=== PATIENT | male | born 1955 | race Caucasian/White ===

== ENCOUNTER 2021-09-18 11:23 | Inpatient (IN) ==
[2021-09-18] MEDS ORDERED: ASPIRIN 325 MG TABLET ONE (11:44)
[2021-09-18] MEDS ORDERED: NITROGLYCERIN 2% OINT 1 INCH/GM PACK TOP ONE (11:44)
[2021-09-18] MEDS ORDERED: NITROGLYCERIN SL 0.4 MG TABLET SL PRN (11:45)
[2021-09-18] MEDS ORDERED: MORPHINE 2 MG/1 ML SYRINGE IV STA (11:45)
[2021-09-18] MEDS ORDERED: ASPIRIN 325 MG TABLET PO STA (11:45)
[2021-09-18] MEDS ORDERED: TICAGRELOR 90 MG TABLET PO STA (11:58)
[2021-09-18] MEDS ORDERED: NITROGLYCERIN 2% OINT 1 INCH/GM PACK TOP STA (11:58)
[2021-09-18] MEDS ORDERED: HEPARIN 5,000 UNIT/1 ML VIAL IV ONE (11:58)
[2021-09-18] MEDS ORDERED: ALUMINUM/MAGNES/SIMETH MAX STR 30 ML UDCUP PO PRN (12:17)
[2021-09-18] MEDS ORDERED: hydrALAZINE 20 MG/1 ML VIAL IV PRN (12:17)
[2021-09-18] MEDS ORDERED: guaiFENesin/DM ER 600-30 MG TABLET PO PRN (12:17)
[2021-09-18] MEDS ORDERED: ZALEPLON 5 MG CAPSULE PO PRN (12:17)
[2021-09-18] MEDS ORDERED: PROMETHAZINE 25 MG TABLET PO PRN (12:17)
[2021-09-18] MEDS ORDERED: DOCUSATE SODIUM 100 MG CAPSULE PO PRN (12:17)
[2021-09-18] MEDS ORDERED: ACETAMINOPHEN 325 MG TABLET PO PRN (12:17)
[2021-09-18] MEDS ORDERED: ONDANSETRON 4 MG/2 ML VIAL IV PRN (12:17)
[2021-09-18] MEDS ORDERED: MAGNESIUM SULF RIDER 2 GM/50 ML PREMIX IV PRN (12:17)
[2021-09-18] MEDS ORDERED: MAGNESIUM SULF RIDER 4 GM/100 ML PREMIX IV PRN (12:17)
[2021-09-18] MEDS ORDERED: diphenhydrAMINE CAP 25 MG CAPSULE PO PRN (12:17)
[2021-09-18] MEDS ORDERED: MORPHINE 2 MG/1 ML SYRINGE IV PRN (12:17)
[2021-09-18] MEDS ORDERED: POTASSIUM CHLORIDE 20 MEQ TABLET PO PRN (12:17)
[2021-09-18 12:18] LABS: Basophils % 0.4 % (0.0-0.8); Eosinophils # 0.2 10*3/uL (0.0-0.87); Eosinophils % 2.3 % (0.00-10.9); Hematocrit 45.1 VOL% (42.0-52.0); Hemoglobin 14.2 GM/DL (14.0-18.0); Immature Granulocytes % 0.3 %; Immature Granulocytes Absolute 0.03 #; Lymphocytes # 2.5 10*3/uL (1.4-4.0); Lymphocytes % 26.8 % (21.2-54.2); Mean Corpuscular HGB Conc 31.5 GM/DL (32-36); Mean Corpuscular Volume 100.2 FL (87-102); Mean Platelet Volume 8.9 FL (9.6-12.0); Monocytes # 0.6 10*3/uL (0.11-0.8); Monocytes % 6.5 % (1.7-12.7); Neutrophils % 63.7 % (38.7-73.9); Platelet Count 213 T/CUMM (130-400); Red Cell Distribution Width 12.9 % (9.3-17.3); White Blood Count 9.2 T/CUMM (4-12)
[2021-09-18] MEDS ORDERED: NITROGLYCERIN DRIP 50 MG/250 ML BOTTLE IV ONE (12:23)
[2021-09-18] MEDS ORDERED: VERAPAMIL 5 MG/2 ML VIAL ONE (12:23)
[2021-09-18] MEDS ORDERED: HEPARIN/NACL 0.9% 2 UNITS/ML 2,000 UNIT/1,000 ML BAG IV ONE (12:23)
[2021-09-18] MEDS ORDERED: HYDROmorphone 1 MG/1 ML SYRINGE ONE (12:24)
[2021-09-18] MEDS ORDERED: MIDAZOLAM 2 MG/2 ML VIAL ONE (12:24)
[2021-09-18 12:30] LABS: INR 0.9; PT Patient Result 10.5 SECS (10.5-12.0)
[2021-09-18 12:31] VITALS: BP 154/83
[2021-09-18] MEDS ORDERED: TIROFIBAN 5,000 MCG/100 ML PREMIX IV ONE (12:35)
[2021-09-18] MEDS ORDERED: TICAGRELOR 90 MG TABLET ONE (12:45)
[2021-09-18 12:50] LABS: Alanine Aminotransferase 25 U/L (16-61); Albumin 3.7 G/DL (3.4-5.0); Alkaline Phosphatase 51 U/L (45-117); Aspartate Amino Transferase 19 U/L (0-37); Bilirubin,Total < 0.39 MG/DL (0.20-1.00); Blood Urea Nitrogen 20 MG/DL (7-18); Calcium 9.1 MG/DL (8.5-10.1); Carbon Dioxide 22 MMOL/L (21-32); Chloride 107 MMOL/L (98-107); Glucose 129 MG/DL (74-106); Osmolality,Calculated 277.8 MOS/KG (273-304); Potassium 3.8 MMOL/L (3.5-5.1); Sodium 137 MMOL/L (136-145); Total Protein 6.9 G/DL (6.4-8.2)
[2021-09-18] MEDS ORDERED: TIROFIBAN 5,000 MCG/100 ML PREMIX IV SCH (13:00)
[2021-09-18] MEDS: carvediloL 6.25 MG TABLET PO SCH (20:31)
[2021-09-18] MEDS: TICAGRELOR 90 MG TABLET PO SCH (20:31)
[2021-09-18] MEDS ORDERED: ROSUVASTATIN 20 MG TABLET PO SCH (21:00)
[2021-09-19 04:40] LABS: Basophils % 0.3 % (0.0-0.8); Eosinophils # 0.1 10*3/uL (0.0-0.87); Eosinophils % 1.3 % (0.00-10.9); Hematocrit 44.5 VOL% (42.0-52.0); Hemoglobin 14.8 GM/DL (14.0-18.0); Immature Granulocytes % 0.5 %; Immature Granulocytes Absolute 0.05 #; Lymphocytes # 1.4 10*3/uL (1.4-4.0); Lymphocytes % 12.3 % (21.2-54.2); Mean Corpuscular HGB Conc 33.3 GM/DL (32-36); Mean Corpuscular Volume 94.3 FL (87-102); Mean Platelet Volume 9.1 FL (9.6-12.0); Monocytes # 0.6 10*3/uL (0.11-0.8); Monocytes % 5.7 % (1.7-12.7); Neutrophils % 79.9 % (38.7-73.9); Platelet Count 226 T/CUMM (130-400); Red Blood Count 4.72 MC/CUMM (3.8-5.5); Red Cell Distribution Width 12.9 % (9.3-17.3); White Blood Count 11.1 T/CUMM (4-12)
[2021-09-19 06:25] LABS: Albumin 3.4 G/DL (3.4-5.0); Bilirubin,Total 0.4 MG/DL (0.20-1.00); Osmolality,Calculated 279.5 MOS/KG (273-304); Potassium 3.9 MMOL/L (3.5-5.1); Risk Ratio 3.37; Thyroid Stimulating Hormone 1.64 uIU/ml (0.358-3.74); Total Protein 6.5 G/DL (6.4-8.2); VLDL Cholesterol 22.6 MG/DL
[2021-09-19 06:26] LABS: CKMB % 5.04 %
[2021-09-19] MEDS: carvediloL 6.25 MG TABLET PO SCH (08:46)
[2021-09-19] MEDS: TICAGRELOR 90 MG TABLET PO SCH (08:46)
[2021-09-19] MEDS ORDERED: PANTOPRAZOLE 40 MG TABLET PO SCH (09:00)
[2021-09-19] MEDS ORDERED: ASPIRIN EC 81 MG TABLET PO SCH (09:00)
[2021-09-19] MEDS ORDERED: LOSARTAN 25 MG TABLET PO SCH (09:00)
== END 2021-09-19 10:54 | disposition home or self-care (01) | DRG 247 ==
LOC: N.ED 11:23 → N.ICU 12:17
PROVIDERS: ADMIT Internal Medicine Cardiovascular Disease; ATTEND Internal Medicine Cardiovascular Disease

== ENCOUNTER 2022-02-16 00:09 | Inpatient (IN) ==
[2022-02-16 01:23] LABS: Albumin 3.5 G/DL (3.4-5.0); Bilirubin,Total 0.6 MG/DL (0.20-1.00); Calcium 9.7 MG/DL (8.5-10.1); Osmolality,Calculated 275.2 MOS/KG (273-304); Potassium 3.6 MMOL/L (3.5-5.1); Total Protein 6.9 G/DL (6.4-8.2)
[2022-02-16 01:53] LABS: Basophils % 0.1 % (0.0-0.8); Hematocrit 42.4 VOL% (42.0-52.0); Hemoglobin 14.7 GM/DL (14.0-18.0); Immature Granulocytes % 1.6 %; Immature Granulocytes Absolute 0.22 #; Lymphocytes # 0.5 10*3/uL (1.4-4.0); Lymphocytes % 3.7 % (21.2-54.2); Mean Corpuscular HGB Conc 34.7 GM/DL (32-36); Mean Platelet Volume 9.4 FL (9.6-12.0); Monocytes # 0.8 10*3/uL (0.11-0.8); Monocytes % 5.8 % (1.7-12.7); Neutrophils % 88.8 % (38.7-73.9); Platelet Count 166 T/CUMM (130-400); Red Blood Count 4.61 MC/CUMM (3.8-5.5); White Blood Count 13.9 T/CUMM (4-12)
[2022-02-16 02:26] LABS: Band Neutrophils 1 % (0-10); Lymphocytes 3 % (20-55); Ovalocytes Slight; Total Cells Counted 100
[2022-02-16 02:27] LABS: Platelet Estimate Adequate
[2022-02-16] MEDS ORDERED: SODIUM CHLORIDE 0.9% 500 ML IV STA (03:22)
[2022-02-16] MEDS ORDERED: HYDROmorphone 1 MG/1 ML SYRINGE IV STA (03:22)
[2022-02-16] MEDS ORDERED: ONDANSETRON 4 MG/2 ML VIAL IV STA (03:22)
[2022-02-16 03:30] LABS: Mucus,Urine Moderate /LPF (Occasional); RBC,Urine <1 /HPF (0-4)
[2022-02-16 03:32] LABS: Bilirubin,Urine Small mg/dL (Negative); Blood, Urine Negative (Negative); Glucose,Urine (UA) Negative (Negative); Ketones,Urine Trace mg/dL (Negative); Nitrite,Urine Negative (Negative); Protein,Urine 100 mg/dL (Negative); Urine Appearance Clear (Clear); Urine Color Yellow (Yellow); Urine Specific Gravity >= 1.030 (1.001-1.035); Urine Urobilinogen 0.2 eU/dL (<2.0); Urine pH 5.5 (4.5-8.0)
[2022-02-16] MEDS ORDERED: PIPERACILLIN/TAZOBACTAM 3,375 MG in SODIUM CHLORIDE 0.9% 100 ML IV STA (04:31)
[2022-02-16] MEDS ORDERED: PANTOPRAZOLE 40 MG TABLET PO PRN (04:42)
[2022-02-16] MEDS ORDERED: HYDROmorphone 1 MG/1 ML SYRINGE IV PRN (04:55)
[2022-02-16] MEDS ORDERED: ONDANSETRON 4 MG/2 ML VIAL IV PRN ×2 (04:55→15:52)
[2022-02-16] MEDS ORDERED: ACETAMINOPHEN 325 MG TABLET PO PRN (04:55)
[2022-02-16] MEDS: SODIUM CHLORIDE 0.9% 1,000 ML IV SCH ×3 (05:15→20:55)
[2022-02-16] MEDS: HYDROmorphone 1 MG/1 ML SYRINGE IV PRN ×6 (07:19→18:10)
[2022-02-16] MEDS ORDERED: TICAGRELOR 90 MG TABLET PO SCH (09:00)
[2022-02-16] MEDS ORDERED: SPIRONOLACTONE 25 MG TABLET PO SCH (09:00)
[2022-02-16] MEDS ORDERED: LOSARTAN 25 MG TABLET PO SCH (09:00)
[2022-02-16] MEDS: PANTOPRAZOLE 40 MG VIAL IV SCH (09:22)
[2022-02-16] MEDS: amLODIPine 10 MG TABLET PO SCH (09:24)
[2022-02-16] MEDS: carvediloL 6.25 MG TABLET PO SCH ×2 (09:24→20:54)
[2022-02-16] MEDS: ASPIRIN EC 81 MG TABLET PO SCH (09:27)
[2022-02-16] MEDS ORDERED: BUPIVACAINE MPF 0.25% 10 ML VIAL ONE (15:01)
[2022-02-16] MEDS ORDERED: TISSUE ADHESIVE 1 EACH APPLICATOR TOP ONE (15:02)
[2022-02-16] MEDS ORDERED: LIDOCAINE 1% 5 ML VIAL ONE (15:02)
[2022-02-16] MEDS ORDERED: LIDOCAINE 2% 5 ML VIAL ONE (15:19)
[2022-02-16] MEDS ORDERED: SEVOFLURANE 1 UNIT/15 MINUTE INH ONE ×2 (15:19→17:20)
[2022-02-16] MEDS ORDERED: propofoL 200 MG/20 ML VIAL IV ONE (15:19)
[2022-02-16] MEDS ORDERED: MIDAZOLAM 2 MG/2 ML VIAL ONE (15:19)
[2022-02-16] MEDS ORDERED: ROCURONIUM 50 MG/5 ML VIAL IV ONE (15:19)
[2022-02-16] MEDS ORDERED: fentaNYL 100 MCG/2 ML VIAL ONE (15:19)
[2022-02-16] MEDS ORDERED: PHENYLEPHRINE 1 MG/10 ML SYRINGE IV ONE (15:20)
[2022-02-16] MEDS ORDERED: PROMETHAZINE INJ 25 MG in SODIUM CHLORIDE 0.9% 50 ML IV PRN (15:52)
[2022-02-16] MEDS ORDERED: MEPERIDINE 25 MG/1 ML VIAL IV PRN (15:52)
[2022-02-16] MEDS ORDERED: diphenhydrAMINE 50 MG/1 ML VIAL IV PRN (15:52)
[2022-02-16] MEDS ORDERED: ePHEDrine 50 MG/ML VIAL ONE (16:09)
[2022-02-16] MEDS ORDERED: SUGAMMADEX 200 MG/2 ML VIAL IV ONE (17:20)
[2022-02-16] MEDS ORDERED: ACETAMINOPHEN INJ 1,000 MG/100 ML VIAL IV ONE (17:20)
[2022-02-16] MEDS ORDERED: LACTATED RINGERS 1,000 ML IV ONE (17:21)
[2022-02-16] MEDS: PIPERACILLIN/TAZOBACTAM 3,375 MG in SODIUM CHLORIDE 0.9% 100 ML IV SCH ×2 (18:12→20:54)
[2022-02-16 18:46] LABS: Basophils % 0.1 % (0.0-0.8); Hemoglobin 12.7 GM/DL (14.0-18.0); Immature Granulocytes % 0.2 %; Immature Granulocytes Absolute 0.02 #; Lymphocytes # 0.6 10*3/uL (1.4-4.0); Lymphocytes % 6.6 % (21.2-54.2); Mean Corpuscular HGB Conc 33.4 GM/DL (32-36); Mean Corpuscular Volume 95.2 FL (87-102); Mean Platelet Volume 9.5 FL (9.6-12.0); Monocytes # 0.6 10*3/uL (0.11-0.8); Monocytes % 6.7 % (1.7-12.7); Neutrophils % 86.4 % (38.7-73.9); Platelet Count 128 T/CUMM (130-400); Red Blood Count 3.99 MC/CUMM (3.8-5.5); Red Cell Distribution Width 13.4 % (9.3-17.3); White Blood Count 9.6 T/CUMM (4-12)
[2022-02-16 18:54] LABS: Calcium 8.2 MG/DL (8.5-10.1); Osmolality,Calculated 282.7 MOS/KG (273-304)
[2022-02-16 19:16] LABS: Band Neutrophils 39 % (0-10); Lymphocytes 11 % (20-55); Platelet Estimate Decreased; Total Cells Counted 100
[2022-02-16] MEDS: ROSUVASTATIN 20 MG TABLET PO SCH (20:57)
[2022-02-16] MEDS ORDERED: DOXAZOSIN 1 MG TABLET PO SCH (21:00)
[2022-02-17] MEDS: HYDROmorphone 1 MG/1 ML SYRINGE IV PRN ×2 (01:01→04:31)
[2022-02-17] MEDS: SODIUM CHLORIDE 0.9% 1,000 ML IV SCH ×2 (04:31→13:17)
[2022-02-17] MEDS: PIPERACILLIN/TAZOBACTAM 3,375 MG in SODIUM CHLORIDE 0.9% 100 ML IV SCH ×3 (04:31→22:09)
[2022-02-17 05:21] LABS: Basophils % 0.2 % (0.0-0.8); Eosinophils % 0.1 % (0.00-10.9); Hematocrit 36.3 VOL% (42.0-52.0); Hemoglobin 11.9 GM/DL (14.0-18.0); Immature Granulocytes % 0.2 %; Immature Granulocytes Absolute 0.02 #; Lymphocytes # 0.7 10*3/uL (1.4-4.0); Lymphocytes % 8.2 % (21.2-54.2); Mean Corpuscular HGB Conc 32.8 GM/DL (32-36); Mean Corpuscular Volume 97.8 FL (87-102); Mean Platelet Volume 9.6 FL (9.6-12.0); Monocytes # 0.4 10*3/uL (0.11-0.8); Monocytes % 4.6 % (1.7-12.7); Neutrophils % 86.7 % (38.7-73.9); Platelet Count 119 T/CUMM (130-400); Red Blood Count 3.71 MC/CUMM (3.8-5.5); Red Cell Distribution Width 13.6 % (9.3-17.3); White Blood Count 8.8 T/CUMM (4-12)
[2022-02-17 05:38] LABS: Calcium 8.2 MG/DL (8.5-10.1); Osmolality,Calculated 280.8 MOS/KG (273-304); Potassium 3.9 MMOL/L (3.5-5.1)
[2022-02-17 05:50] LABS: Band Neutrophils 3 % (0-10); Lymphocytes 11 % (20-55); Total Cells Counted 100
[2022-02-17 05:51] LABS: Ovalocytes Slight
[2022-02-17] MEDS: PANTOPRAZOLE 40 MG VIAL IV SCH (09:24)
[2022-02-17] MEDS: carvediloL 6.25 MG TABLET PO SCH ×2 (09:25→20:38)
[2022-02-17] MEDS: amLODIPine 10 MG TABLET PO SCH (09:25)
[2022-02-17] MEDS: ASPIRIN EC 81 MG TABLET PO SCH (09:25)
[2022-02-17] MEDS: ROSUVASTATIN 20 MG TABLET PO SCH (20:38)
[2022-02-18] MEDS: PIPERACILLIN/TAZOBACTAM 3,375 MG in SODIUM CHLORIDE 0.9% 100 ML IV SCH (05:20)
[2022-02-18 06:05] LABS: Basophils % 0.1 % (0.0-0.8); Eosinophils # 0.2 10*3/uL (0.0-0.87); Eosinophils % 1.3 % (0.00-10.9); Hematocrit 37.4 VOL% (42.0-52.0); Hemoglobin 12.1 GM/DL (14.0-18.0); Immature Granulocytes % 0.6 %; Immature Granulocytes Absolute 0.07 #; Lymphocytes # 0.9 10*3/uL (1.4-4.0); Lymphocytes % 7.4 % (21.2-54.2); Mean Corpuscular HGB Conc 32.4 GM/DL (32-36); Mean Corpuscular Volume 96.4 FL (87-102); Monocytes # 0.5 10*3/uL (0.11-0.8); Monocytes % 4.1 % (1.7-12.7); Neutrophils % 86.5 % (38.7-73.9); Platelet Count 127 T/CUMM (130-400); Red Blood Count 3.88 MC/CUMM (3.8-5.5); Red Cell Distribution Width 13.2 % (9.3-17.3)
[2022-02-18 06:34] LABS: Band Neutrophils 3 % (0-10); Eosinophils 1 % (0-10); Lymphocytes 4 % (20-55); Platelet Estimate Normal; Total Cells Counted 100
[2022-02-18] MEDS: ASPIRIN EC 81 MG TABLET PO SCH (09:03)
[2022-02-18] MEDS: amLODIPine 5 MG TABLET PO SCH (09:03)
[2022-02-18] MEDS: SODIUM CHLORIDE 0.9% 1,000 ML IV SCH (09:03)
[2022-02-18] MEDS: carvediloL 6.25 MG TABLET PO SCH ×2 (09:04→20:20)
[2022-02-18] MEDS: TICAGRELOR 90 MG TABLET PO SCH ×2 (09:04→20:20)
[2022-02-18] MEDS: PANTOPRAZOLE 40 MG VIAL IV SCH (09:04)
[2022-02-18] MEDS: CEFUROXIME 500 MG TABLET PO SCH ×2 (12:16→16:42)
[2022-02-18] MEDS: ROSUVASTATIN 20 MG TABLET PO SCH (20:20)
[2022-02-19 07:21] VITALS: BP 132/75
[2022-02-19] MEDS: TICAGRELOR 90 MG TABLET PO SCH (08:56)
[2022-02-19] MEDS: carvediloL 6.25 MG TABLET PO SCH (08:56)
[2022-02-19] MEDS: ASPIRIN EC 81 MG TABLET PO SCH (08:56)
[2022-02-19] MEDS: CEFUROXIME 500 MG TABLET PO SCH (08:56)
[2022-02-19] MEDS: amLODIPine 5 MG TABLET PO SCH (08:56)
[2022-02-19] MEDS ORDERED: PANTOPRAZOLE 40 MG TABLET PO SCH (09:00)
== END 2022-02-19 10:12 | disposition home or self-care (01) | DRG 853 ==
LOC: N.ED 00:09 → N.3E 04:31
PROVIDERS: ADMIT Surgery; ATTEND Surgery

== ENCOUNTER 2022-02-25 11:25 | Inpatient (IN) ==
[2022-02-25] MEDS: LACTATED RINGERS 1,000 ML IV SCH ×2 (13:07→21:09)
[2022-02-25] MEDS: PIPERACILLIN/TAZOBACTAM 3,375 MG in SODIUM CHLORIDE 0.9% 100 ML IV SCH ×2 (13:07→21:03)
[2022-02-25] MEDS: HYDROmorphone 1 MG/1 ML SYRINGE IV PRN ×3 (13:08→21:03)
[2022-02-25] MEDS: ONDANSETRON 4 MG/2 ML VIAL IV PRN ×2 (13:17→18:45)
[2022-02-25 13:36] LABS: Basophils # 0.1 10*3/uL (0.0-0.2); Basophils % 0.2 % (0.0-0.8); Eosinophils # 0.1 10*3/uL (0.0-0.87); Eosinophils % 0.2 % (0.00-10.9); Hematocrit 38.8 VOL% (42.0-52.0); Hemoglobin 12.8 GM/DL (14.0-18.0); Immature Granulocytes % 1.4 %; Immature Granulocytes Absolute 0.34 #; Lymphocytes # 1.1 10*3/uL (1.4-4.0); Lymphocytes % 4.6 % (21.2-54.2); Mean Corpuscular Volume 94.4 FL (87-102); Mean Platelet Volume 8.9 FL (9.6-12.0); Monocytes # 1.1 10*3/uL (0.11-0.8); Monocytes % 4.3 % (1.7-12.7); Neutrophils % 89.3 % (38.7-73.9); Platelet Count 481 T/CUMM (130-400); Red Blood Count 4.11 MC/CUMM (3.8-5.5); Red Cell Distribution Width 12.9 % (9.3-17.3); White Blood Count 24.4 T/CUMM (4-12)
[2022-02-25 13:57] LABS: Calcium 8.9 MG/DL (8.5-10.1); Osmolality,Calculated 268.4 MOS/KG (273-304)
[2022-02-25 14:14] LABS: Band Neutrophils 2 % (0-10); Lymphocytes 5 % (20-55); Platelet Estimate Increased; Total Cells Counted 100
[2022-02-25] MEDS: NYSTATIN 500,000 UNIT/5 ML UDCUP SWISH/SWAL SCH ×2 (16:16→21:02)
[2022-02-25] MEDS: PROMETHAZINE 25 MG/1 ML VIAL IM PRN (21:02)
[2022-02-25] MEDS: DOXAZOSIN 1 MG TABLET PO SCH (21:02)
[2022-02-25] MEDS: ROSUVASTATIN 20 MG TABLET PO SCH (21:02)
[2022-02-25] MEDS: carvediloL 6.25 MG TABLET PO SCH (21:02)
[2022-02-25] MEDS: PANTOPRAZOLE 40 MG TABLET PO PRN (21:07)
[2022-02-26] MEDS: HYDROmorphone 1 MG/1 ML SYRINGE IV PRN ×6 (02:26→23:17)
[2022-02-26] MEDS: LACTATED RINGERS 1,000 ML IV SCH ×4 (05:14→23:15)
[2022-02-26 05:43] LABS: Basophils % 0.2 % (0.0-0.8); Eosinophils # 0.1 10*3/uL (0.0-0.87); Eosinophils % 0.7 % (0.00-10.9); Hematocrit 35.8 VOL% (42.0-52.0); Immature Granulocytes % 0.9 %; Immature Granulocytes Absolute 0.18 #; Lymphocytes # 1.1 10*3/uL (1.4-4.0); Lymphocytes % 5.5 % (21.2-54.2); Mean Corpuscular HGB Conc 33.5 GM/DL (32-36); Mean Corpuscular Volume 95.5 FL (87-102); Mean Platelet Volume 8.8 FL (9.6-12.0); Monocytes # 1.2 10*3/uL (0.11-0.8); Monocytes % 6.2 % (1.7-12.7); Neutrophils % 86.5 % (38.7-73.9); Platelet Count 455 T/CUMM (130-400); Red Blood Count 3.75 MC/CUMM (3.8-5.5); Red Cell Distribution Width 13.2 % (9.3-17.3)
[2022-02-26 05:53] LABS: INR 1.1; PT Patient Result 12.4 SECS (10.1-12.1); Partial Thromboplastin Time 25.1 SECS (23.7-32.9)
[2022-02-26] MEDS: PIPERACILLIN/TAZOBACTAM 3,375 MG in SODIUM CHLORIDE 0.9% 100 ML IV SCH ×3 (05:56→23:17)
[2022-02-26 05:59] LABS: Calcium 8.9 MG/DL (8.5-10.1); Osmolality,Calculated 263.7 MOS/KG (273-304); Potassium 4.3 MMOL/L (3.5-5.1)
[2022-02-26] MEDS: PANTOPRAZOLE 40 MG VIAL IV SCH (09:20)
[2022-02-26] MEDS ORDERED: DIAZEPAM 5 MG TABLET PO ONE (09:24)
[2022-02-26] MEDS ORDERED: MIDAZOLAM 2 MG/2 ML VIAL IV ONE (09:24)
[2022-02-26] MEDS ORDERED: fentaNYL 100 MCG/2 ML VIAL IV ONE (09:24)
[2022-02-26] MEDS: amLODIPine 10 MG TABLET PO SCH ×2 (09:30→15:30)
[2022-02-26] MEDS: ASPIRIN EC 81 MG TABLET PO SCH ×2 (09:30→15:30)
[2022-02-26] MEDS: NYSTATIN 500,000 UNIT/5 ML UDCUP SWISH/SWAL SCH ×4 (09:30→21:04)
[2022-02-26] MEDS: PANTOPRAZOLE 40 MG TABLET PO PRN ×2 (09:30→15:28)
[2022-02-26] MEDS: carvediloL 6.25 MG TABLET PO SCH ×3 (09:30→20:59)
[2022-02-26] MEDS: ENOXAPARIN 40 MG/0.4 ML SYRINGE SUBCUT SCH (09:31)
[2022-02-26] MEDS: SODIUM CHLORIDE 0.45% 1,000 ML IV SCH (11:21)
[2022-02-26] MEDS: ONDANSETRON 4 MG/2 ML VIAL IV PRN ×2 (12:53→17:36)
[2022-02-26] MEDS: PROMETHAZINE 25 MG/1 ML VIAL IM PRN (15:27)
[2022-02-26] MEDS: DOXAZOSIN 1 MG TABLET PO SCH (20:59)
[2022-02-26] MEDS: ROSUVASTATIN 20 MG TABLET PO SCH (20:59)
[2022-02-27] MEDS: HYDROmorphone 1 MG/1 ML SYRINGE IV PRN ×6 (03:01→20:38)
[2022-02-27] MEDS: LACTATED RINGERS 1,000 ML IV SCH ×3 (06:59→22:09)
[2022-02-27] MEDS: amLODIPine 10 MG TABLET PO SCH (09:17)
[2022-02-27] MEDS: PIPERACILLIN/TAZOBACTAM 3,375 MG in SODIUM CHLORIDE 0.9% 100 ML IV SCH ×3 (09:17→22:35)
[2022-02-27] MEDS: carvediloL 6.25 MG TABLET PO SCH ×2 (09:17→20:37)
[2022-02-27] MEDS: ASPIRIN EC 81 MG TABLET PO SCH (09:17)
[2022-02-27] MEDS: ENOXAPARIN 40 MG/0.4 ML SYRINGE SUBCUT SCH (09:18)
[2022-02-27] MEDS: PANTOPRAZOLE 40 MG VIAL IV SCH (09:18)
[2022-02-27] MEDS: NYSTATIN 500,000 UNIT/5 ML UDCUP SWISH/SWAL SCH ×4 (09:25→20:39)
[2022-02-27] MEDS: SODIUM CHLORIDE 0.45% 1,000 ML IV SCH (10:39)
[2022-02-27] MEDS: DOXAZOSIN 1 MG TABLET PO SCH (20:37)
[2022-02-27] MEDS: ROSUVASTATIN 20 MG TABLET PO SCH (20:37)
[2022-02-27] MEDS: PROMETHAZINE 25 MG/1 ML VIAL IM PRN (20:39)
[2022-02-28] MEDS: HYDROmorphone 1 MG/1 ML SYRINGE IV PRN ×6 (01:59→22:08)
[2022-02-28] MEDS: ONDANSETRON 4 MG/2 ML VIAL IV PRN ×3 (01:59→22:08)
[2022-02-28] MEDS: PIPERACILLIN/TAZOBACTAM 3,375 MG in SODIUM CHLORIDE 0.9% 100 ML IV SCH ×3 (08:34→22:30)
[2022-02-28] MEDS: amLODIPine 10 MG TABLET PO SCH (08:38)
[2022-02-28] MEDS: ASPIRIN EC 81 MG TABLET PO SCH (08:38)
[2022-02-28] MEDS: NYSTATIN 500,000 UNIT/5 ML UDCUP SWISH/SWAL SCH ×5 (08:38→22:09)
[2022-02-28] MEDS: PANTOPRAZOLE 40 MG VIAL IV SCH (08:38)
[2022-02-28] MEDS: carvediloL 6.25 MG TABLET PO SCH ×2 (08:38→22:09)
[2022-02-28] MEDS: ENOXAPARIN 40 MG/0.4 ML SYRINGE SUBCUT SCH (08:39)
[2022-02-28 11:26] LABS: Basophils % 0.2 % (0.0-0.8); Eosinophils # 0.2 10*3/uL (0.0-0.87); Eosinophils % 1.4 % (0.00-10.9); Hematocrit 36.4 VOL% (42.0-52.0); Hemoglobin 12.1 GM/DL (14.0-18.0); Immature Granulocytes % 0.8 %; Lymphocytes # 1.4 10*3/uL (1.4-4.0); Lymphocytes % 12.1 % (21.2-54.2); Mean Corpuscular HGB Conc 33.2 GM/DL (32-36); Mean Corpuscular Volume 95.8 FL (87-102); Mean Platelet Volume 8.4 FL (9.6-12.0); Monocytes # 0.8 10*3/uL (0.11-0.8); Monocytes % 6.6 % (1.7-12.7); Neutrophils % 78.9 % (38.7-73.9); Platelet Count 503 T/CUMM (130-400); Red Cell Distribution Width 12.5 % (9.3-17.3)
[2022-02-28 11:42] LABS: Calcium 8.6 MG/DL (8.5-10.1); Osmolality,Calculated 267.2 MOS/KG (273-304); Potassium 4.6 MMOL/L (3.5-5.1)
[2022-02-28] MEDS ORDERED: BENZOCAINE/MENTHOL LOZENGE 18/BOX PO PRN (12:57)
[2022-02-28] MEDS: ROSUVASTATIN 20 MG TABLET PO SCH (22:09)
[2022-02-28] MEDS: DOXAZOSIN 1 MG TABLET PO SCH (22:09)
[2022-03-01] MEDS: HYDROmorphone 1 MG/1 ML SYRINGE IV PRN ×3 (03:30→20:37)
[2022-03-01] MEDS ORDERED: PHENOL 1.4% THROAT SPRAY 177 ML BOTTLE PO PRN (08:46)
[2022-03-01] MEDS: PANTOPRAZOLE 40 MG VIAL IV SCH (08:48)
[2022-03-01] MEDS: ENOXAPARIN 40 MG/0.4 ML SYRINGE SUBCUT SCH (08:51)
[2022-03-01] MEDS: NYSTATIN 500,000 UNIT/5 ML UDCUP SWISH/SWAL SCH ×5 (08:53→23:09)
[2022-03-01] MEDS: CIPROFLOXACIN INJ 400 MG/200 ML PREMIX IV SCH ×2 (08:53→20:37)
[2022-03-01] MEDS: ASPIRIN EC 81 MG TABLET PO SCH (08:55)
[2022-03-01] MEDS: amLODIPine 10 MG TABLET PO SCH (08:55)
[2022-03-01] MEDS: carvediloL 6.25 MG TABLET PO SCH ×2 (08:56→16:04)
[2022-03-01] MEDS: ROSUVASTATIN 20 MG TABLET PO SCH (20:37)
[2022-03-01] MEDS: DOXAZOSIN 1 MG TABLET PO SCH (20:37)
[2022-03-02 05:13] LABS: Basophils # 0.1 10*3/uL (0.0-0.2); Basophils % 0.5 % (0.0-0.8); Eosinophils # 0.2 10*3/uL (0.0-0.87); Eosinophils % 2.1 % (0.00-10.9); Hematocrit 37.1 VOL% (42.0-52.0); Hemoglobin 11.9 GM/DL (14.0-18.0); Immature Granulocytes % 1.2 %; Immature Granulocytes Absolute 0.11 #; Lymphocytes # 1.9 10*3/uL (1.4-4.0); Lymphocytes % 20.2 % (21.2-54.2); Mean Corpuscular HGB Conc 32.1 GM/DL (32-36); Mean Corpuscular Volume 95.9 FL (87-102); Mean Platelet Volume 8.1 FL (9.6-12.0); Monocytes # 0.8 10*3/uL (0.11-0.8); Monocytes % 8.6 % (1.7-12.7); Neutrophils % 67.4 % (38.7-73.9); Platelet Count 494 T/CUMM (130-400); Red Blood Count 3.87 MC/CUMM (3.8-5.5); Red Cell Distribution Width 12.4 % (9.3-17.3); White Blood Count 9.5 T/CUMM (4-12)
[2022-03-02 05:41] LABS: Calcium 8.6 MG/DL (8.5-10.1); Potassium 4.2 MMOL/L (3.5-5.1)
[2022-03-02] MEDS: SPIRONOLACTONE 25 MG TABLET PO SCH (08:31)
[2022-03-02] MEDS: carvediloL 6.25 MG TABLET PO SCH ×2 (08:32→16:30)
[2022-03-02] MEDS: LOSARTAN 25 MG TABLET PO SCH (08:32)
[2022-03-02] MEDS: NYSTATIN 500,000 UNIT/5 ML UDCUP SWISH/SWAL SCH ×4 (08:32→20:22)
[2022-03-02] MEDS: amLODIPine 10 MG TABLET PO SCH (08:32)
[2022-03-02] MEDS: CIPROFLOXACIN 500 MG TABLET PO SCH ×2 (08:32→16:30)
[2022-03-02] MEDS: TICAGRELOR 90 MG TABLET PO SCH ×2 (08:32→20:22)
[2022-03-02] MEDS: ASPIRIN EC 81 MG TABLET PO SCH (08:32)
[2022-03-02] MEDS: PANTOPRAZOLE 40 MG TABLET PO SCH (08:32)
[2022-03-02] MEDS: ALUMINUM/MAGNES/SIMETH MAX STR 30 ML UDCUP PO PRN ×2 (14:58→18:57)
[2022-03-02] MEDS: ROSUVASTATIN 20 MG TABLET PO SCH (20:22)
[2022-03-02] MEDS: DOXAZOSIN 1 MG TABLET PO SCH (20:22)
[2022-03-03] MEDS: carvediloL 6.25 MG TABLET PO SCH ×2 (09:00→17:35)
[2022-03-03] MEDS: SPIRONOLACTONE 25 MG TABLET PO SCH (09:00)
[2022-03-03] MEDS: ASPIRIN EC 81 MG TABLET PO SCH (09:00)
[2022-03-03] MEDS: amLODIPine 10 MG TABLET PO SCH (09:00)
[2022-03-03] MEDS: TICAGRELOR 90 MG TABLET PO SCH ×2 (09:00→22:09)
[2022-03-03] MEDS: CIPROFLOXACIN 500 MG TABLET PO SCH ×2 (09:00→17:35)
[2022-03-03] MEDS: LOSARTAN 25 MG TABLET PO SCH (09:00)
[2022-03-03] MEDS: PANTOPRAZOLE 40 MG TABLET PO SCH (09:01)
[2022-03-03] MEDS: NYSTATIN 500,000 UNIT/5 ML UDCUP SWISH/SWAL SCH ×4 (09:01→22:09)
[2022-03-03] MEDS: ONDANSETRON 4 MG/2 ML VIAL IV PRN (22:09)
[2022-03-03] MEDS: DOXAZOSIN 1 MG TABLET PO SCH (22:09)
[2022-03-03] MEDS: ROSUVASTATIN 20 MG TABLET PO SCH (22:09)
[2022-03-03] MEDS: HYDROmorphone 1 MG/1 ML SYRINGE IV PRN (22:12)
[2022-03-03] MEDS: LACTATED RINGERS 1,000 ML IV SCH (22:58)
[2022-03-04] MEDS: LACTATED RINGERS 1,000 ML IV SCH ×5 (05:52→20:58)
[2022-03-04] MEDS: HYDROmorphone 1 MG/1 ML SYRINGE IV PRN ×5 (05:53→22:21)
[2022-03-04 07:43] LABS: Basophils % 0.3 % (0.0-0.8); Eosinophils # 0.1 10*3/uL (0.0-0.87); Eosinophils % 0.9 % (0.00-10.9); Hematocrit 39.4 VOL% (42.0-52.0); Immature Granulocytes % 0.9 %; Immature Granulocytes Absolute 0.12 #; Lymphocytes # 1.6 10*3/uL (1.4-4.0); Lymphocytes % 11.5 % (21.2-54.2); Mean Platelet Volume 8.2 FL (9.6-12.0); Monocytes # 0.8 10*3/uL (0.11-0.8); Monocytes % 5.8 % (1.7-12.7); Neutrophils % 80.6 % (38.7-73.9); Platelet Count 500 T/CUMM (130-400); Red Blood Count 4.19 MC/CUMM (3.8-5.5); Red Cell Distribution Width 12.5 % (9.3-17.3); White Blood Count 13.8 T/CUMM (4-12)
[2022-03-04 07:55] LABS: Calcium 9.3 MG/DL (8.5-10.1); Osmolality,Calculated 274.8 MOS/KG (273-304); Potassium 4.3 MMOL/L (3.5-5.1)
[2022-03-04] MEDS: TICAGRELOR 90 MG TABLET PO SCH ×2 (09:11→20:57)
[2022-03-04] MEDS: SPIRONOLACTONE 25 MG TABLET PO SCH (09:11)
[2022-03-04] MEDS: PANTOPRAZOLE 40 MG TABLET PO SCH (09:11)
[2022-03-04] MEDS: ASPIRIN EC 81 MG TABLET PO SCH (09:11)
[2022-03-04] MEDS: LOSARTAN 25 MG TABLET PO SCH (09:12)
[2022-03-04] MEDS: carvediloL 6.25 MG TABLET PO SCH ×2 (09:12→16:50)
[2022-03-04] MEDS: CIPROFLOXACIN 500 MG TABLET PO SCH ×2 (09:12→16:50)
[2022-03-04] MEDS: amLODIPine 10 MG TABLET PO SCH (09:12)
[2022-03-04] MEDS: ONDANSETRON 4 MG/2 ML VIAL IV PRN ×2 (09:18→20:57)
[2022-03-04] MEDS: NYSTATIN 500,000 UNIT/5 ML UDCUP SWISH/SWAL SCH ×4 (09:28→20:57)
[2022-03-04] MEDS: DOXAZOSIN 1 MG TABLET PO SCH (20:56)
[2022-03-04] MEDS: ROSUVASTATIN 20 MG TABLET PO SCH (20:57)
[2022-03-05] MEDS: LACTATED RINGERS 1,000 ML IV SCH ×4 (00:16→17:11)
[2022-03-05] MEDS: HYDROmorphone 1 MG/1 ML SYRINGE IV PRN ×4 (04:35→23:41)
[2022-03-05 05:56] LABS: Basophils % 0.4 % (0.0-0.8); Eosinophils # 0.2 10*3/uL (0.0-0.87); Eosinophils % 1.9 % (0.00-10.9); Hematocrit 37.9 VOL% (42.0-52.0); Hemoglobin 12.5 GM/DL (14.0-18.0); Immature Granulocytes % 0.8 %; Immature Granulocytes Absolute 0.08 #; Lymphocytes # 1.5 10*3/uL (1.4-4.0); Lymphocytes % 14.7 % (21.2-54.2); Mean Corpuscular Volume 95.2 FL (87-102); Mean Platelet Volume 8.4 FL (9.6-12.0); Monocytes # 0.6 10*3/uL (0.11-0.8); Monocytes % 6.3 % (1.7-12.7); Neutrophils % 75.9 % (38.7-73.9); Platelet Count 442 T/CUMM (130-400); Red Blood Count 3.98 MC/CUMM (3.8-5.5); Red Cell Distribution Width 12.2 % (9.3-17.3); White Blood Count 10.1 T/CUMM (4-12)
[2022-03-05 06:11] LABS: Osmolality,Calculated 272.8 MOS/KG (273-304); Potassium 4.1 MMOL/L (3.5-5.1)
[2022-03-05] MEDS: carvediloL 6.25 MG TABLET PO SCH ×2 (10:40→17:11)
[2022-03-05] MEDS: CIPROFLOXACIN INJ 400 MG/200 ML PREMIX IV SCH ×2 (10:40→20:34)
[2022-03-05] MEDS: ASPIRIN EC 81 MG TABLET PO SCH (10:41)
[2022-03-05] MEDS: TICAGRELOR 90 MG TABLET PO SCH ×2 (10:41→20:33)
[2022-03-05] MEDS: LOSARTAN 25 MG TABLET PO SCH (10:41)
[2022-03-05] MEDS: SPIRONOLACTONE 25 MG TABLET PO SCH (10:41)
[2022-03-05] MEDS: amLODIPine 10 MG TABLET PO SCH (10:41)
[2022-03-05] MEDS: PANTOPRAZOLE 40 MG TABLET PO SCH (10:41)
[2022-03-05] MEDS: INSULIN REGULAR 100 UNIT/ML SUBCUT SCH ×3 (11:51→23:42)
[2022-03-05] MEDS ORDERED: DEXTROSE 10% 1,000 ML IV PRN (17:00)
[2022-03-05] MEDS ORDERED: MULTIVITAMIN INJ 10 ML in AMINO ACIDS/DEXT/LYTES 5-15% 1,000 ML IV SCH (17:00)
[2022-03-05] MEDS: FAT EMULSION 20% 250 ML IV SCH (17:11)
[2022-03-05] MEDS: MULTIVITAMIN INJ 10 ML in AMINO ACIDS/DEXT/LYTES 5-15% 1,000 ML IV SCH (17:26)
[2022-03-05] MEDS: DOXAZOSIN 1 MG TABLET PO SCH (20:33)
[2022-03-05] MEDS: ONDANSETRON 4 MG/2 ML VIAL IV PRN (20:33)
[2022-03-05] MEDS: ROSUVASTATIN 20 MG TABLET PO SCH (20:33)
[2022-03-06] MEDS: LACTATED RINGERS 1,000 ML IV SCH ×3 (01:56→18:55)
[2022-03-06] MEDS: INSULIN REGULAR 100 UNIT/ML SUBCUT SCH ×3 (06:20→17:48)
[2022-03-06 07:00] LABS: Calcium 9.1 MG/DL (8.5-10.1)
[2022-03-06] MEDS: HYDROmorphone 1 MG/1 ML SYRINGE IV PRN ×5 (07:58→22:00)
[2022-03-06] MEDS: TICAGRELOR 90 MG TABLET PO SCH ×2 (10:29→21:19)
[2022-03-06] MEDS: ASPIRIN EC 81 MG TABLET PO SCH (10:29)
[2022-03-06] MEDS: carvediloL 6.25 MG TABLET PO SCH ×2 (10:29→17:47)
[2022-03-06] MEDS: SPIRONOLACTONE 25 MG TABLET PO SCH (10:29)
[2022-03-06] MEDS: CIPROFLOXACIN INJ 400 MG/200 ML PREMIX IV SCH ×2 (10:29→21:18)
[2022-03-06] MEDS: LOSARTAN 25 MG TABLET PO SCH (10:30)
[2022-03-06] MEDS: amLODIPine 10 MG TABLET PO SCH (10:30)
[2022-03-06] MEDS: PANTOPRAZOLE 40 MG TABLET PO SCH (10:30)
[2022-03-06] MEDS: FAT EMULSION 20% 250 ML IV SCH (17:47)
[2022-03-06] MEDS: MULTIVITAMIN INJ 10 ML in AMINO ACIDS/DEXT/LYTES 5-15% 2,000 ML IV SCH (17:48)
[2022-03-06] MEDS: DOXAZOSIN 1 MG TABLET PO SCH (21:19)
[2022-03-06] MEDS: ROSUVASTATIN 20 MG TABLET PO SCH (21:19)
[2022-03-07] MEDS: INSULIN REGULAR 100 UNIT/ML SUBCUT SCH ×4 (00:20→19:02)
[2022-03-07] MEDS: HYDROmorphone 1 MG/1 ML SYRINGE IV PRN ×6 (00:41→23:07)
[2022-03-07] MEDS: LACTATED RINGERS 1,000 ML IV SCH ×4 (03:30→20:44)
[2022-03-07 06:42] LABS: Basophils % 0.4 % (0.0-0.8); Eosinophils # 0.2 10*3/uL (0.0-0.87); Eosinophils % 1.7 % (0.00-10.9); Hematocrit 37.7 VOL% (42.0-52.0); Hemoglobin 12.6 GM/DL (14.0-18.0); Immature Granulocytes % 0.6 %; Immature Granulocytes Absolute 0.07 #; Lymphocytes # 1.4 10*3/uL (1.4-4.0); Lymphocytes % 12.7 % (21.2-54.2); Mean Corpuscular HGB Conc 33.4 GM/DL (32-36); Mean Corpuscular Volume 94.7 FL (87-102); Mean Platelet Volume 8.5 FL (9.6-12.0); Monocytes # 0.8 10*3/uL (0.11-0.8); Monocytes % 7.3 % (1.7-12.7); Neutrophils % 77.3 % (38.7-73.9); Platelet Count 327 T/CUMM (130-400); Red Blood Count 3.98 MC/CUMM (3.8-5.5)
[2022-03-07 06:55] LABS: Calcium 8.9 MG/DL (8.5-10.1); Potassium 4.3 MMOL/L (3.5-5.1)
[2022-03-07] MEDS: CIPROFLOXACIN INJ 400 MG/200 ML PREMIX IV SCH ×2 (09:06→20:44)
[2022-03-07] MEDS: diphenhydrAMINE 50 MG/1 ML VIAL IV PRN ×3 (09:06→20:45)
[2022-03-07] MEDS: TICAGRELOR 90 MG TABLET PO SCH ×2 (09:07→20:45)
[2022-03-07] MEDS: carvediloL 6.25 MG TABLET PO SCH ×2 (09:07→17:36)
[2022-03-07] MEDS: ASPIRIN EC 81 MG TABLET PO SCH (09:07)
[2022-03-07] MEDS: LOSARTAN 25 MG TABLET PO SCH (09:07)
[2022-03-07] MEDS: SPIRONOLACTONE 25 MG TABLET PO SCH (09:07)
[2022-03-07] MEDS: PANTOPRAZOLE 40 MG TABLET PO SCH (09:08)
[2022-03-07] MEDS: amLODIPine 10 MG TABLET PO SCH (09:08)
[2022-03-07] MEDS: MULTIVITAMIN INJ 10 ML in AMINO ACIDS/DEXT/LYTES 5-15% 2,000 ML IV SCH (12:05)
[2022-03-07] MEDS: FAT EMULSION 20% 250 ML IV SCH (13:57)
[2022-03-07] MEDS: MULTIVITAMIN INJ 10 ML in AMINO ACIDS/DEXT/LYTES 5-15% 1,000 ML IV SCH (19:40)
[2022-03-07] MEDS: ROSUVASTATIN 20 MG TABLET PO SCH (20:45)
[2022-03-07] MEDS: DOXAZOSIN 1 MG TABLET PO SCH (20:45)
[2022-03-08] MEDS: INSULIN REGULAR 100 UNIT/ML SUBCUT SCH ×4 (00:10→18:06)
[2022-03-08] MEDS: HYDROmorphone 1 MG/1 ML SYRINGE IV PRN ×2 (02:48→05:40)
[2022-03-08] MEDS: diphenhydrAMINE 50 MG/1 ML VIAL IV PRN (02:53)
[2022-03-08] MEDS: LACTATED RINGERS 1,000 ML IV SCH ×4 (03:18→18:10)
[2022-03-08] MEDS: MULTIVITAMIN INJ 10 ML in AMINO ACIDS/DEXT/LYTES 5-15% 2,000 ML IV SCH (05:40)
[2022-03-08 06:49] LABS: Calcium 8.8 MG/DL (8.5-10.1); Osmolality,Calculated 274.1 MOS/KG (273-304); Potassium 4.3 MMOL/L (3.5-5.1)
[2022-03-08] MEDS: LOSARTAN 25 MG TABLET PO SCH (08:24)
[2022-03-08] MEDS: TICAGRELOR 90 MG TABLET PO SCH ×2 (08:24→20:19)
[2022-03-08] MEDS: PANTOPRAZOLE 40 MG TABLET PO SCH (08:25)
[2022-03-08] MEDS: SPIRONOLACTONE 25 MG TABLET PO SCH (08:25)
[2022-03-08] MEDS: amLODIPine 10 MG TABLET PO SCH (08:25)
[2022-03-08] MEDS: CIPROFLOXACIN INJ 400 MG/200 ML PREMIX IV SCH ×2 (08:25→20:20)
[2022-03-08] MEDS: carvediloL 6.25 MG TABLET PO SCH ×2 (08:25→18:01)
[2022-03-08] MEDS: ASPIRIN EC 81 MG TABLET PO SCH (08:25)
[2022-03-08] MEDS ORDERED: diphenhydrAMINE 50 MG/1 ML VIAL IM PRN (10:50)
[2022-03-08] MEDS: FAT EMULSION 20% 250 ML IV SCH (14:30)
[2022-03-08] MEDS: diphenhydrAMINE CAP 25 MG CAPSULE PO PRN ×2 (14:53→20:19)
[2022-03-08] MEDS: ROSUVASTATIN 20 MG TABLET PO SCH (20:19)
[2022-03-08] MEDS: DOXAZOSIN 1 MG TABLET PO SCH (20:19)
[2022-03-09] MEDS: MULTIVITAMIN INJ 10 ML in AMINO ACIDS/DEXT/LYTES 5-15% 2,000 ML IV SCH ×2 (00:16→17:57)
[2022-03-09] MEDS: ONDANSETRON 4 MG/2 ML VIAL IV PRN ×2 (00:18→07:14)
[2022-03-09] MEDS: INSULIN REGULAR 100 UNIT/ML SUBCUT SCH ×4 (01:19→17:57)
[2022-03-09] MEDS: diphenhydrAMINE CAP 25 MG CAPSULE PO PRN ×3 (01:20→20:29)
[2022-03-09] MEDS: LACTATED RINGERS 1,000 ML IV SCH ×4 (02:26→09:45)
[2022-03-09] MEDS: PROMETHAZINE 25 MG/1 ML VIAL IM PRN (04:15)
[2022-03-09] MEDS: ASPIRIN CHEW 81 MG TABLET PO SCH (08:39)
[2022-03-09] MEDS: SPIRONOLACTONE 25 MG TABLET PO SCH (08:39)
[2022-03-09] MEDS: OMEPRAZOLE ODT 20 MG TABLET PER TUBE SCH (08:40)
[2022-03-09] MEDS: TICAGRELOR 90 MG TABLET PO SCH ×2 (08:41→20:29)
[2022-03-09] MEDS: CIPROFLOXACIN INJ 400 MG/200 ML PREMIX IV SCH ×2 (08:41→20:29)
[2022-03-09] MEDS: LOSARTAN 25 MG TABLET PO SCH (08:41)
[2022-03-09] MEDS: carvediloL 6.25 MG TABLET PO SCH ×2 (08:41→16:49)
[2022-03-09] MEDS: amLODIPine 10 MG TABLET PO SCH (08:41)
[2022-03-09] MEDS: ENOXAPARIN 40 MG/0.4 ML SYRINGE SUBCUT SCH (14:35)
[2022-03-09] MEDS: FAT EMULSION 20% 250 ML IV SCH (14:35)
[2022-03-09] MEDS: DOXAZOSIN 1 MG TABLET PO SCH (20:28)
[2022-03-09] MEDS: ROSUVASTATIN 20 MG TABLET PO SCH (20:28)
[2022-03-10] MEDS: LACTATED RINGERS 1,000 ML IV SCH ×2 (00:41→18:17)
[2022-03-10] MEDS: INSULIN REGULAR 100 UNIT/ML SUBCUT SCH ×5 (00:55→18:16)
[2022-03-10] MEDS: diphenhydrAMINE CAP 25 MG CAPSULE PO PRN ×2 (02:33→08:18)
[2022-03-10] MEDS: ONDANSETRON 4 MG/2 ML VIAL IV PRN ×2 (06:23→18:16)
[2022-03-10] MEDS: LOSARTAN 25 MG TABLET PO SCH (08:17)
[2022-03-10] MEDS: amLODIPine 10 MG TABLET PO SCH (08:17)
[2022-03-10] MEDS: ENOXAPARIN 40 MG/0.4 ML SYRINGE SUBCUT SCH (08:18)
[2022-03-10] MEDS: SPIRONOLACTONE 25 MG TABLET PO SCH (08:18)
[2022-03-10] MEDS: TICAGRELOR 90 MG TABLET PO SCH ×2 (08:18→20:34)
[2022-03-10] MEDS: ASPIRIN CHEW 81 MG TABLET PO SCH (08:18)
[2022-03-10] MEDS: carvediloL 6.25 MG TABLET PO SCH ×2 (08:18→18:16)
[2022-03-10] MEDS: CIPROFLOXACIN INJ 400 MG/200 ML PREMIX IV SCH ×2 (08:18→20:34)
[2022-03-10] MEDS: OMEPRAZOLE ODT 20 MG TABLET PER TUBE SCH (08:19)
[2022-03-10] MEDS: MULTIVITAMIN INJ 10 ML in AMINO ACIDS/DEXT/LYTES 5-15% 2,000 ML IV SCH (13:37)
[2022-03-10] MEDS: FAT EMULSION 20% 250 ML IV SCH (13:38)
[2022-03-10] MEDS: DOXAZOSIN 1 MG TABLET PO SCH (20:34)
[2022-03-10] MEDS: ROSUVASTATIN 20 MG TABLET PO SCH (20:34)
[2022-03-11] MEDS: INSULIN REGULAR 100 UNIT/ML SUBCUT SCH ×4 (01:03→18:42)
[2022-03-11] MEDS: diphenhydrAMINE CAP 25 MG CAPSULE PO PRN ×2 (02:16→20:59)
[2022-03-11 05:43] LABS: Basophils # 0.1 10*3/uL (0.0-0.2); Basophils % 0.6 % (0.0-0.8); Eosinophils # 0.4 10*3/uL (0.0-0.87); Eosinophils % 3.9 % (0.00-10.9); Hematocrit 39.3 VOL% (42.0-52.0); Hemoglobin 12.3 GM/DL (14.0-18.0); Immature Granulocytes % 0.6 %; Immature Granulocytes Absolute 0.06 #; Lymphocytes # 1.6 10*3/uL (1.4-4.0); Lymphocytes % 16.4 % (21.2-54.2); Mean Corpuscular HGB Conc 31.3 GM/DL (32-36); Mean Corpuscular Volume 98.5 FL (87-102); Mean Platelet Volume 8.9 FL (9.6-12.0); Monocytes # 0.8 10*3/uL (0.11-0.8); Monocytes % 8.3 % (1.7-12.7); Neutrophils % 70.2 % (38.7-73.9); Platelet Count 274 T/CUMM (130-400); Red Blood Count 3.99 MC/CUMM (3.8-5.5); Red Cell Distribution Width 12.4 % (9.3-17.3); White Blood Count 9.9 T/CUMM (4-12)
[2022-03-11 06:05] LABS: Alanine Aminotransferase 63 U/L (16-61); Albumin 2.7 G/DL (3.4-5.0); Alkaline Phosphatase 72 U/L (45-117); Aspartate Amino Transferase 37 U/L (0-37); Bilirubin,Total < 0.39 MG/DL (0.20-1.00); Blood Urea Nitrogen 27 MG/DL (7-18); Calcium 9.1 MG/DL (8.5-10.1); Carbon Dioxide 26 MMOL/L (21-32); Chloride 103 MMOL/L (98-107); Glucose 152 MG/DL (74-106); Osmolality,Calculated 280.8 MOS/KG (273-304); Potassium 5.1 MMOL/L (3.5-5.1); Sodium 137 MMOL/L (136-145); Total Protein 6.2 G/DL (6.4-8.2); Triglycerides 103 MG/DL (2-150)
[2022-03-11] MEDS: MULTIVITAMIN INJ 10 ML in AMINO ACIDS/DEXT/LYTES 5-15% 2,000 ML IV SCH (07:59)
[2022-03-11] MEDS: LACTATED RINGERS 1,000 ML IV SCH (07:59)
[2022-03-11] MEDS: carvediloL 6.25 MG TABLET PO SCH ×2 (08:04→16:35)
[2022-03-11] MEDS: amLODIPine 10 MG TABLET PO SCH (08:04)
[2022-03-11] MEDS: OMEPRAZOLE ODT 20 MG TABLET PER TUBE SCH (08:04)
[2022-03-11] MEDS: LOSARTAN 25 MG TABLET PO SCH (08:04)
[2022-03-11] MEDS: ASPIRIN CHEW 81 MG TABLET PO SCH (08:04)
[2022-03-11] MEDS: SPIRONOLACTONE 25 MG TABLET PO SCH (08:04)
[2022-03-11] MEDS: TICAGRELOR 90 MG TABLET PO SCH ×2 (08:04→20:58)
[2022-03-11] MEDS: ENOXAPARIN 40 MG/0.4 ML SYRINGE SUBCUT SCH (08:05)
[2022-03-11] MEDS: CIPROFLOXACIN INJ 400 MG/200 ML PREMIX IV SCH ×2 (08:05→20:51)
[2022-03-11] MEDS: FAT EMULSION 20% 250 ML IV SCH (14:24)
[2022-03-11] MEDS: ROSUVASTATIN 20 MG TABLET PO SCH (20:58)
[2022-03-11] MEDS: DOXAZOSIN 1 MG TABLET PO SCH (20:58)
[2022-03-12] MEDS: INSULIN REGULAR 100 UNIT/ML SUBCUT SCH ×4 (00:56→18:23)
[2022-03-12] MEDS: diphenhydrAMINE CAP 25 MG CAPSULE PO PRN ×4 (02:40→20:42)
[2022-03-12] MEDS: MULTIVITAMIN INJ 10 ML in AMINO ACIDS/DEXT/LYTES 5-15% 2,000 ML IV SCH ×2 (02:42→20:38)
[2022-03-12] MEDS: LACTATED RINGERS 1,000 ML IV SCH (03:04)
[2022-03-12] MEDS: ASPIRIN CHEW 81 MG TABLET PO SCH (09:02)
[2022-03-12] MEDS: TICAGRELOR 90 MG TABLET PO SCH ×2 (09:03→20:39)
[2022-03-12] MEDS: SPIRONOLACTONE 25 MG TABLET PO SCH (09:03)
[2022-03-12] MEDS: LOSARTAN 25 MG TABLET PO SCH (09:03)
[2022-03-12] MEDS: OMEPRAZOLE ODT 20 MG TABLET PER TUBE SCH (09:03)
[2022-03-12] MEDS: amLODIPine 10 MG TABLET PO SCH (09:03)
[2022-03-12] MEDS: carvediloL 6.25 MG TABLET PO SCH ×2 (09:03→18:18)
[2022-03-12] MEDS: ENOXAPARIN 40 MG/0.4 ML SYRINGE SUBCUT SCH (09:04)
[2022-03-12] MEDS: CIPROFLOXACIN INJ 400 MG/200 ML PREMIX IV SCH (09:52)
[2022-03-12] MEDS: FAT EMULSION 20% 250 ML IV SCH (14:40)
[2022-03-12] MEDS: DOXAZOSIN 1 MG TABLET PO SCH (20:39)
[2022-03-12] MEDS: ROSUVASTATIN 20 MG TABLET PO SCH (20:39)
[2022-03-13] MEDS: INSULIN REGULAR 100 UNIT/ML SUBCUT SCH ×4 (00:14→17:15)
[2022-03-13] MEDS: diphenhydrAMINE CAP 25 MG CAPSULE PO PRN ×4 (02:41→21:14)
[2022-03-13] MEDS: LACTATED RINGERS 1,000 ML IV SCH (02:42)
[2022-03-13] MEDS: TICAGRELOR 90 MG TABLET PO SCH ×2 (08:42→21:15)
[2022-03-13] MEDS: ASPIRIN EC 81 MG TABLET PO SCH (08:42)
[2022-03-13] MEDS: SPIRONOLACTONE 25 MG TABLET PO SCH (08:42)
[2022-03-13] MEDS: carvediloL 6.25 MG TABLET PO SCH ×2 (08:42→17:14)
[2022-03-13] MEDS: PANTOPRAZOLE 40 MG TABLET PO SCH (08:42)
[2022-03-13] MEDS: LOSARTAN 25 MG TABLET PO SCH (08:43)
[2022-03-13] MEDS: ENOXAPARIN 40 MG/0.4 ML SYRINGE SUBCUT SCH (08:47)
[2022-03-13] MEDS: amLODIPine 10 MG TABLET PO SCH (08:47)
[2022-03-13] MEDS: FAT EMULSION 20% 250 ML IV SCH (14:26)
[2022-03-13] MEDS: MULTIVITAMIN INJ 10 ML in AMINO ACIDS/DEXT/LYTES 5-15% 2,000 ML IV SCH (14:26)
[2022-03-13] MEDS: ROSUVASTATIN 20 MG TABLET PO SCH (21:14)
[2022-03-13] MEDS: DOXAZOSIN 1 MG TABLET PO SCH (21:15)
[2022-03-14] MEDS: INSULIN REGULAR 100 UNIT/ML SUBCUT SCH ×5 (00:34→23:56)
[2022-03-14] MEDS: diphenhydrAMINE CAP 25 MG CAPSULE PO PRN ×4 (02:52→20:49)
[2022-03-14] MEDS: LACTATED RINGERS 1,000 ML IV SCH (03:24)
[2022-03-14] MEDS: LOSARTAN 25 MG TABLET PO SCH (08:27)
[2022-03-14] MEDS: ASPIRIN EC 81 MG TABLET PO SCH (08:27)
[2022-03-14] MEDS: SPIRONOLACTONE 25 MG TABLET PO SCH (08:27)
[2022-03-14] MEDS: TICAGRELOR 90 MG TABLET PO SCH ×2 (08:27→20:49)
[2022-03-14] MEDS: amLODIPine 10 MG TABLET PO SCH (08:27)
[2022-03-14] MEDS: carvediloL 6.25 MG TABLET PO SCH ×2 (08:27→16:50)
[2022-03-14] MEDS: PANTOPRAZOLE 40 MG TABLET PO SCH (08:27)
[2022-03-14] MEDS: ENOXAPARIN 40 MG/0.4 ML SYRINGE SUBCUT SCH (08:28)
[2022-03-14] MEDS: MULTIVITAMIN INJ 10 ML in AMINO ACIDS/DEXT/LYTES 5-15% 2,000 ML IV SCH (08:30)
[2022-03-14] MEDS: FAT EMULSION 20% 250 ML IV SCH (15:30)
[2022-03-14] MEDS: DOXAZOSIN 1 MG TABLET PO SCH (20:49)
[2022-03-14] MEDS: ROSUVASTATIN 20 MG TABLET PO SCH (20:49)
[2022-03-15] MEDS: MULTIVITAMIN INJ 10 ML in AMINO ACIDS/DEXT/LYTES 5-15% 2,000 ML IV SCH (02:20)
[2022-03-15] MEDS: diphenhydrAMINE CAP 25 MG CAPSULE PO PRN ×4 (02:22→23:17)
[2022-03-15] MEDS: INSULIN REGULAR 100 UNIT/ML SUBCUT SCH ×2 (06:05→11:36)
[2022-03-15] MEDS: ASPIRIN EC 81 MG TABLET PO SCH (08:33)
[2022-03-15] MEDS: TICAGRELOR 90 MG TABLET PO SCH ×2 (08:34→20:22)
[2022-03-15] MEDS: amLODIPine 10 MG TABLET PO SCH (08:34)
[2022-03-15] MEDS: LOSARTAN 25 MG TABLET PO SCH (08:34)
[2022-03-15] MEDS: SPIRONOLACTONE 25 MG TABLET PO SCH (08:34)
[2022-03-15] MEDS: PANTOPRAZOLE 40 MG TABLET PO SCH (08:34)
[2022-03-15] MEDS: carvediloL 6.25 MG TABLET PO SCH ×2 (08:34→17:11)
[2022-03-15] MEDS: LACTATED RINGERS 1,000 ML IV SCH (09:25)
[2022-03-15] MEDS: BACILLUS COAGULANS CAPLET PO SCH (09:48)
[2022-03-15] MEDS: DOXAZOSIN 1 MG TABLET PO SCH (20:22)
[2022-03-15] MEDS: ROSUVASTATIN 20 MG TABLET PO SCH (20:22)
[2022-03-16] MEDS: TICAGRELOR 90 MG TABLET PO SCH (08:36)
[2022-03-16] MEDS: carvediloL 6.25 MG TABLET PO SCH (08:36)
[2022-03-16] MEDS: SPIRONOLACTONE 25 MG TABLET PO SCH (08:36)
[2022-03-16] MEDS: BACILLUS COAGULANS CAPLET PO SCH (08:36)
[2022-03-16] MEDS: ASPIRIN EC 81 MG TABLET PO SCH (08:36)
[2022-03-16] MEDS: PANTOPRAZOLE 40 MG TABLET PO SCH (08:36)
[2022-03-16] MEDS: amLODIPine 10 MG TABLET PO SCH (08:36)
[2022-03-16] MEDS: LOSARTAN 25 MG TABLET PO SCH (08:36)
[2022-03-16 11:03] VITALS: BP 110/70
== END 2022-03-16 11:28 | disposition home or self-care (01) | DRG 862 ==
LOC: N.3E 11:57
PROVIDERS: ADMIT Surgery; ATTEND Surgery